=== PATIENT | male | born 1975 | race Caucasian/White ===

== ENCOUNTER → 2021-04-08 16:00 | Outpatient (CLI) | payer BC, SELFPAY ==
[2021-04-08 18:20] LABS: Amphetamine/Metha Screen,Urine Negative ng/ml (<1000); Barbiturates Screen,Urine Negative ng/ml (<200)
[2021-04-08 18:21] LABS: Benzodiazepines Screen,Urine Positive ng/ml (<200); Cannabinoid Screen,Urine Negative ng/ml (<50)
[2021-04-08 18:22] LABS: Cocaine Screen,Urine Negative ng/ml (<300)
[2021-04-08 18:23] LABS: Methadone Screen,Urine Negative ng/ml (<300); Opiate Screen,Urine Negative ng/ml (<300)
[2021-04-08 18:24] LABS: Phencyclidine Screen,Urine Negative ng/ml (<25)
== END ==
PROVIDERS: Visit Provider Nurse Practitioner Family
DX: Z79.899 Other long term (current) drug therapy (principal)
CPT/HCPCS: 80305

== ENCOUNTER → 2021-09-17 14:30 | Outpatient (CLI) | payer BC, SELFPAY ==
[2021-09-17 17:29] LABS: Basophils % 0.5 % (0.1-2.0); Eosinophils # 0.2 K/mm3 (0.0-0.4); Eosinophils % 3.4 % (0.1-12.0); Hematocrit 39.1 % (42.0-52.0); Hemoglobin 11.8 g/dL (14.1-18.0); Lymphocytes # 1.6 K/mm3 (0.7-4.5); Mean Corpuscular Hemoglobin 27.9 pg (27.0-31.2); Mean Platelet Volume 8.8 fl (7.4-10.4); Monocytes # 0.6 K/mm3 (0.1-1.0); Monocytes % 8.8 % (1.7-9.3); Neutrophils % 62.3 % (37.0-80.0); Platelet Count 484 K/mm3 (142-424); Red Blood Count 4.21 M/mm3 (4.60-6.20); Red Cell Distribution Width 14.8 % (11.5-17.5); White Blood Count 6.3 K/mm3 (4.8-10.8)
[2021-09-17 17:47] LABS: Alanine Aminotransferase 26 U/L (12-78); Albumin Level 3.5 g/dl (3.5-5.0); Albumin/Globulin Ratio 1.1 (1.1-1.8); Alkaline Phosphatase 66 U/L (38-126); Anion Gap 10.5 mEq/L (5-15); Aspartate Amino Transferase 45 U/L (17-59); Blood Urea Nitrogen 14 mg/dl (9-20); Calcium 9.2 mg/dl (8.4-10.2); Carbon Dioxide 30 mmol/L (22.0-30.0); Chloride 104 mmol/L (98-107); Estimated Glomerular Filt Rate 105 ml/min (>60); GFR (African American) 126 ML/MIN (>60); Globulin 3.2 g/dL (1.3-3.2); Glucose 113 mg/dl (74-100); Potassium 4.5 mmoL/L (3.5-5.1); Sodium 140 mmol/L (136-145); Total Protein,Serum 6.7 g/dl (6.3-8.2)
[2021-09-17 17:53] LABS: Bilirubin,Total < 0.1 mg/dl (0.2-1.3)
[2021-09-19 07:08] LABS: Hep A Ab, Total Negative (Negative); Hep B Core Ab, Total Negative (Negative); Hep B Surface Ab, Qual Non Reactive (.); Hepatitis B Surface Antigen Negative (Negative); Hepatitis C Antibody >11.0 s/co ratio (0.0-0.9)
[2021-09-19 10:08] LABS: HIV Screen 4th Generation wRfx Non Reactive (Non Reactive)
[2021-09-21 17:09] LABS: HCV Genotype Charge YES; Hepatitis C Genotype 1a (.)
== END ==
PROVIDERS: PCP Nurse Practitioner Family; Visit Provider Nurse Practitioner Family
DX: F41.9 Anxiety disorder, unspecified (principal); J38.7 Other diseases of larynx; B18.2 Chronic viral hepatitis C; Z11.59 Encounter for screening for other viral diseases; Z11.4 Encounter for screening for human immunodeficiency virus [HIV]; Z72.0 Tobacco use
CPT/HCPCS: 80053; 85025; 86703; 86704; 86706; 86708; 87340; 87380; 87522; 87902; G0432

== ENCOUNTER → 2021-12-08 13:35 | Outpatient (CLI) | payer BC, SELFPAY ==
[2021-12-08 18:59] LABS: Barbiturates Screen,Urine Negative ng/ml (<200)
[2021-12-08 19:01] LABS: Benzodiazepines Screen,Urine Negative ng/ml (<200); Cannabinoid Screen,Urine Negative ng/ml (<50)
[2021-12-08 19:03] LABS: Cocaine Screen,Urine Negative ng/ml (<300)
[2021-12-08 19:04] LABS: Methadone Screen,Urine Negative ng/ml (<300); Opiate Screen,Urine Negative ng/ml (<300)
[2021-12-08 19:05] LABS: Phencyclidine Screen,Urine Negative ng/ml (<25)
[2021-12-15 23:40] LABS: Amphetamine Positive (.); Amphetamine (GC/MS) >3000 ng/mL (Cutoff=500); Amphetamines Positive (.); Methamphetamine Positive (.); Methamphetamine (GC/MS) >3000 ng/mL (Cutoff=500)
== END ==
PROVIDERS: PCP Emergency Medicine; Visit Provider Emergency Medicine
DX: Z79.899 Other long term (current) drug therapy (principal)
CPT/HCPCS: 80305; 80324

== ENCOUNTER 2022-04-28 22:39 | Emergency (ER) | payer BC, SELFPAY ==
[2022-04-28 22:40] VITALS: BP 117/81; PULSE 82; RESP 16; TEMP 36.3; O2SAT 92; BMI 20.9
--- NOTE | 2022-04-28 22:51 | CT_ITS ---
PROCEDURE INFORMATION: Exam: CT Chest Without Contrast; Diagnostic Exam date and time: 04/28/2022 11:20 PM Age: 46 years old Clinical indication: Cough TECHNIQUE: Imaging protocol: Diagnostic computed tomography of the chest without contrast. Radiation optimization: All CT scans at this facility use at least one of these dose optimization techniques: automated exposure control; mA and/or kV adjustment per patient size (includes targeted exams where dose is matched to clinical indication); or iterative reconstruction. REPORTING DATA: Count of CT and Cardiac NM exams in prior 12 months: This patient has received [address] and 0 known cardiac nuclear medicine studies in the 12 months prior to the current study. COMPARISON: NECKW CT soft tissue neck w con 07/25/2017 7:17 PM FINDINGS: Lungs: Unremarkable. No consolidation. No masses. Pleural spaces: Unremarkable. No pneumothorax. No pleural effusion. Heart: Unremarkable. No cardiomegaly. No pericardial effusion. Lymph nodes: Calcified mediastinal and perihilar lymph nodes. Shotty bi axillary and mediastinal noncalcified lymph nodes without lymphadenopathy. Vasculature: Unremarkable. No aortic aneurysm. No significant atherosclerotic calcification of thoracic aorta or coronary arteries identified. Bones/joints: Visualized osseous structures grossly unremarkable for acute findings. Soft tissues: Unremarkable. IMPRESSION: 1. No infiltration is seen. 2. Calcified perihilar and mediastinal lymph nodes likely reflecting remote granulomatous exposure.
--- NOTE | 2022-04-28 22:51 | CT_ITS ---
PROCEDURE INFORMATION: Exam: CT Neck With Contrast Exam date and time: 04/28/2022 11:25 PM Age: 46 years old Clinical indication: Dysphagia / difficulty swallowing and other: Cough; Patient HX: PT states HX of throat cancer TECHNIQUE: Imaging protocol: Computed tomography of the neck with contrast. Radiation optimization: All CT scans at this facility use at least one of these dose optimization techniques: automated exposure control; mA and/or kV adjustment per patient size (includes targeted exams where dose is matched to clinical indication); or iterative reconstruction. Contrast material: ISOVUE; Contrast volume: 75 ml; Contrast route: IV; REPORTING DATA: Count of CT and Cardiac NM exams in prior 12 months: This patient has received [address] and 0 known cardiac nuclear medicine studies in the 12 months prior to the current study. COMPARISON: NECKW CT soft tissue neck w con 07/25/2017 7:17 PM FINDINGS: Pharynx: Unremarkable. No significant tonsillar enlargement. Larynx: There is irregularity of the aryepiglottic folds without mass lesion or focal inflammatory lesion. This may be related mild inflammation or sequela of treatment for the patient's cancer. The vocal cords are symmetric. Prevertebral and retropharyngeal spaces: Unremarkable. Salivary glands: Normal. Glands are normal in size. Thyroid: The thyroid gland is diminutive and slightly heterogeneous without focal nodule. Lymph nodes: Unremarkable. No lymphadenopathy. Trachea: Visualized trachea is unremarkable. Lungs: Fibrotic changes of the medial lung apices likely related to radiation therapy for the patient's reported throat cancer. Mediastinal space: Mucous is noted within the mid to distal thoracic trachea included on this study. Bones/joints: Unremarkable. No acute fracture. Vasculature: There is a small plaque along the posterior wall of the proximal left internal carotid artery without significant stenosis. Soft tissues: Unremarkable. No significant soft tissue swelling. IMPRESSION: 1. Irregularity of the aryepiglottic folds may be related to mild inflammation or treatment for the patient's known cancer. There is no airway compromise. No abscess is identified. The prevertebral soft tissues are normal. 2. Fibrotic changes of the medial lung apices likely related to radiation therapy. 3. Mucus within the mid to distal thoracic trachea included on this study. 4. Other findings as detailed.
--- NOTE | 2022-04-28 23:17 | PC.NURSE ---
pt going to scan
[2022-04-28 23:32] LABS: Basophils # 0.1 K/mm3 (0-0.2); Basophils % 0.7 % (0.1-2.0); Chloride 97 mmol/L (98-107); Eosinophils # 0.1 K/mm3 (0.0-0.4); Eosinophils % 0.7 % (0.1-12.0); Hematocrit 42.9 % (42.0-52.0); Lymphocytes # 2.6 K/mm3 (0.7-4.5); Lymphocytes % 32.8 % (10-50); Mean Corpuscular HGB Conc 32.6 g/dL (31.8-35.4); Mean Corpuscular Hemoglobin 28.7 pg (27.0-31.2); Mean Corpuscular Volume 87.9 fl (80-94); Mean Platelet Volume 7.6 fl (7.4-10.4); Monocytes # 0.4 K/mm3 (0.1-1.0); Monocytes % 4.9 % (1.7-9.3); Neutrophils # 4.9 K/mm3 (1.8-7.8); Neutrophils % 60.9 % (37.0-80.0); Platelet Count 419 K/mm3 (142-424); Potassium 4.2 mmoL/L (3.5-5.1); Red Blood Count 4.88 M/mm3 (4.60-6.20); Red Cell Distribution Width 13.5 % (11.5-17.5); Sodium 136 mmol/L (136-145)
[2022-04-28 23:35] LABS: Anion Gap 12.2 mEq/L (5-15); Blood Urea Nitrogen 28 mg/dl (9-20); Calcium 9.4 mg/dl (8.4-10.2); Carbon Dioxide 31 mmol/L (22.0-30.0); Creatinine Clearance Estimated 45 mL/min (50-200); Estimated Glomerular Filt Rate 44 ml/min (>60); GFR (African American) 53 ML/MIN (>60); Glucose 108 mg/dl (74-100)
[2022-04-28 23:48] LABS: Troponin I < 0.01 ng/ml (0.00-0.034)
--- NOTE | 2022-04-28 23:55 | [facility].EDDIZZ ---
Discharge Plan Disposition Patient Disposition: Home, Self-Care Prescriptions Prescriptions: New azithromycin [azithromycin] 250 mg tablet 250 mg PO DIRECTED Qty: 6 0RF Rx Instructions: Take two (2) tablets on day #1, then one (1) tablet day #2 thru #5 prednisone [prednisone] 20 mg tablet 20 mg PO BID Qty: 10 0RF No Action bupropion HCl 75 mg tablet 75 mg PO BID Qty: 180 3RF cyclobenzaprine 10 mg tablet 10 mg PO TID PRN (Reason: muscle spasm) Qty: 60 0RF clonazepam 0.5 mg tablet 0.5 mg PO QID Qty: 120 0RF hydrocodone-acetaminophen 5-325 mg tablet 1 tab PO BID Qty: 60 0RF sildenafil 100 mg tablet 100 mg PO DAILY Qty: 30 2RF Referrals Follow up/Referrals: Giancarlo Riojas MD [Primary Care Provider] - See instructions Clinical Impressions Clinical Impression: Laryngeal spasm, CORTES (acute kidney injury) Instructions Patient Instructions: DI for Laryngitis Discharge ED Provider: Beulah (ED)Giancarlo Dizzarjun HPI General Chief Complaint: Dizziness Stated Complaint: dizzy, sweating, off balance, HX of throat cancer Time Seen by Provider: 04/28/22 23:55 Mode of Arrival: Ambulatory Source of Information: Patient, Significant Other and Medical Record Limitations: No Limitations Description of Symptoms (Recalled from ER Triage Doc. 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 but no f/u over the last 2 yrs - has hx of dysphonia and continues to smoke - episode of choking on water tonight and with cough got dizzyness complaint: dizziness Onset (ago): hour(s) Timing: sudden onset and now resolved Description: lightheadedness History of similar episodes: Yes History of trauma: No Severity: moderate Associated symptoms: denies other symptoms Related Data Previous Rx's Medication Instructions Recorded cyclobenzaprine 10 mg tablet 10 mg PO TID PRN muscle spasm #60 01/13/21 tabs bupropion HCl 75 mg tablet 75 mg PO BID #180 tabs 04/08/21 sildenafil 100 mg tablet 100 mg PO DAILY #30 tabs 07/26/21 clonazepam 0.5 mg tablet 0.5 mg PO QID #120 tabs 12/08/21 hydrocodone 5 mg-acetaminophen 325 1 tab PO BID #60 tabs 12/08/21 mg tablet azithromycin 250 mg tablet 250 mg PO DIRECTED #6 tabs 04/29/22 prednisone 20 mg tablet 20 mg PO BID #10 tabs 04/29/22 Allergies Allergy/AdvReac Type Severity Reaction Status Date / Time No Known Allergies Allergy Verified 12/08/21 13:37 [facility] Disclaimer: The information contained in this section may have been updated after the patient was seen, as this information can be updated by other users. Social History Smoking Status: Current every day smoker tobacco type: e-cigarettes alcohol intake: never substance use type: former substance user and prescription drug current occupational status: disabled Travel in the last 8 weeks: None housing: house ROS Obtained: Yes All systems reviewed & no additional complaints except as documented Physical Exam General General appearance: alert Head Head exam: normocephalic Eye Eye exam: Present PERRL and EOMI ENT ENT exam: Present mucous membranes moist Neck Neck exam: Present trachea midline; Absent lymphadenopathy Respiratory Respiratory exam: Present normal lung sounds bilaterally; Absent respiratory distress Cardiovascular Cardiovascular exam: Present regular rate and systolic murmur Abdominal Exam Abdominal exam: Present soft Extremities Exam Extremities exam: Present full ROM Neurological Exam Neurological exam: Present alert, oriented X3 and CN II-XII intact; Absent motor sensory deficit Psychiatric Psychiatric exam: Present normal affect Skin Skin exam: Absent rash Medical Decision Making Medical Records Medical records reviewed: Yes I reviewed the patient's medi
[2022-04-29 00:48] VITALS: BP 124/81; PULSE 80; RESP 16; TEMP 36.3; O2SAT 92
== END 2022-04-29 00:50 | disposition home or self-care (01) ==
PROVIDERS: Emergency Provider Emergency Medicine; PCP Emergency Medicine
DX: J38.5 Laryngeal spasm (principal); N17.8 Other acute kidney failure
CPT/HCPCS: 70491; 71250; 80048; 84484; 85025; 96361; 96374; 96375; 99284; 99285; Q9967

== ENCOUNTER → 2022-05-04 15:03 | Outpatient (CLI) | payer BC, SELFPAY ==
[2022-05-04 16:26] LABS: Anion Gap 11.4 mEq/L (5-15); Blood Urea Nitrogen 21 mg/dl (9-20); Carbon Dioxide 29 mmol/L (22.0-30.0); Chloride 98 mmol/L (98-107); Estimated Glomerular Filt Rate 104 ml/min (>60); GFR (African American) 126 ML/MIN (>60); Glucose 82 mg/dl (74-100); Potassium 4.4 mmoL/L (3.5-5.1); Sodium 134 mmol/L (136-145)
== END ==
PROVIDERS: PCP Emergency Medicine; Visit Provider Emergency Medicine
DX: N17.9 Acute kidney failure, unspecified (principal)
CPT/HCPCS: 36415; 80048

== ENCOUNTER 2023-08-18 14:08 | Emergency (ER) | payer SELFPAY ==
[2023-08-18] VITALS (8 sets, daily range): BP systolic 88–130; BP diastolic 53–88; PULSE 66–90; RESP 16–18; TEMP 36.6–36.7; O2SAT 93–98; BMI 22.9
--- NOTE | 2023-08-18 15:29 | CT_ITS ---
PROCEDURE INFORMATION: Exam: CTA Abdomen and Pelvis With Contrast Exam date and time: 08/18/2023 5:14 PM Age: 47 years old Clinical indication: Other: Bilateral leg swelling TECHNIQUE: Imaging protocol: Computed tomographic angiography of the abdomen and pelvis with contrast. Exam focused on the arteries. 3D rendering (Not supervised by radiologist): MIP and/or 3D reconstructed images were created by the technologist. Radiation optimization: All CT scans at this facility use at least one of these dose optimization techniques: automated exposure control; mA and/or kV adjustment per patient size (includes targeted exams where dose is matched to clinical indication); or iterative reconstruction. Contrast material: ISOVUE 370; Contrast volume: 100 ml; Contrast route: INTRAVENOUS (IV); COMPARISON: CT ANGIO CHEST 08/18/2023 5:14 PM FINDINGS: Lungs: Minimal focal infiltrate in the tip of the lingula. Small calcified granuloma in the right lower lobe. Lungs are otherwise clear. Diaphragm: Small sliding-type hiatal hernia. Aorta: No aortic aneurysm. No aortic dissection. Celiac trunk and mesenteric arteries: No occlusion or significant stenosis. Renal arteries: No occlusion or significant stenosis. Right iliac arteries: No occlusion or significant stenosis. Left iliac arteries: No occlusion or significant stenosis. Liver: No mass. Gallbladder and biliary ducts: Unremarkable. No calcified stones. No ductal dilation. Pancreas: Unremarkable. No mass. No ductal dilation. Spleen: Unremarkable. No splenomegaly. Adrenal glands: Unremarkable. No mass. Kidneys and ureters: Unremarkable. No solid mass. No hydronephrosis. Stomach and bowel: Unremarkable. No obstruction. No mucosal thickening. Appendix: No evidence of appendicitis. Intraperitoneal space: Unremarkable. No free air. No significant fluid collection. Lymph nodes: Mild diffuse periaortic and mesenteric lymphadenopathy. Mild bilateral inguinal lymphadenopathy. Urinary bladder: Unremarkable. No mass. Reproductive: Unremarkable as visualized. Bones/joints: Mild degenerative changes throughout the thoracic spine. No vertebral body compression or acute fracture. Soft tissues: Small fat containing umbilical hernia. IMPRESSION: 1. No significant atherosclerotic disease, abnormality of the abdominal aorta or significant arterial stenosis or occlusion in the abdomen or pelvis. 2. Mild diffuse periaortic, mesenteric and bilateral inguinal lymphadenopathy. No prior studies are available to determine whether these findings are chronic. Active pathology such as infection or metastatic neoplasm would be in the differential diagnosis. 3. Small fat containing umbilical hernia.
--- NOTE | 2023-08-18 15:29 | CT_ITS ---
PROCEDURE INFORMATION: Exam: CTA Chest With Contrast Exam date and time: 08/18/2023 5:14 PM Age: 47 years old Clinical indication: Other: Rue pulse deficit, pallor TECHNIQUE: Imaging protocol: Computed tomographic angiography of the chest with contrast. Exam focused on the arteries. 3D rendering (Not supervised by radiologist): MIP and/or 3D reconstructed images were created by the technologist. Radiation optimization: All CT scans at this facility use at least one of these dose optimization techniques: automated exposure control; mA and/or kV adjustment per patient size (includes targeted exams where dose is matched to clinical indication); or iterative reconstruction. Contrast material: ISOVUE 370; Contrast volume: 100 ml; Contrast route: INTRAVENOUS (IV); COMPARISON: CT ANGIO CHEST 08/18/2023 5:14 PM FINDINGS: Pulmonary arteries: Evaluation limited due to suboptimal contrast opacification. No evidence of pulmonary emboli. Aorta: Unremarkable. No aortic aneurysm. No aortic dissection. Lungs: Minimal infiltrate in the tip of the lingula. Small calcified granuloma in the right lower lobe. Lungs are otherwise clear. Pleural spaces: Unremarkable. No pneumothorax. No pleural effusion. Heart: Unremarkable. No cardiomegaly. No pericardial effusion. Lymph nodes: Small calcified lymph nodes in the right hilum and subcarinal region. Slightly prominent noncalcified lymph nodes in the right paratracheal region. Diaphragm: Small sliding-type hiatal hernia. Bones/joints: Mild degenerative disc changes throughout the thoracic spine. No vertebral body compression or acute fracture. Soft tissues: Unremarkable. IMPRESSION: 1. Minimal age-indeterminate infiltrate in the tip of the lingula 2. Slightly limited evaluation of the pulmonary arteries. No evidence of pulmonary embolus or aortic abnormality 3. Nonspecific mildly prominent right paratracheal lymph nodes as well as small calcified lymph nodes in the right hilum and mediastinum. This may represent sequela of old granulomatous disease.
--- NOTE | 2023-08-18 15:29 | CT_ITS ---
PROCEDURE INFORMATION: Exam: CTA Right Upper Extremity With Contrast Exam date and time: 08/18/2023 5:23 PM Age: 47 years old Clinical indication: Other: Pulse deficit TECHNIQUE: Imaging protocol: Computed tomographic angiography of the right upper extremity with contrast, including non-contrast images if performed. 3D rendering (Not supervised by radiologist): MIP and/or 3D reconstructed images were created by the technologist. Radiation optimization: All CT scans at this facility use at least one of these dose optimization techniques: automated exposure control; mA and/or kV adjustment per patient size (includes targeted exams where dose is matched to clinical indication); or iterative reconstruction. Contrast material: ISOVUE 370; Contrast volume: 80 ml; Contrast route: INTRAVENOUS (IV); COMPARISON: CT ANGIO CHEST 08/18/2023 5:14 PM FINDINGS: Right subclavian artery: On series 6, images 28-33 there is focal thrombus producing complete occlusion of the origin of the right subclavian artery lumen. There is distal contrast opacification of the subclavian artery presumably via collateral vessels. Axillary artery: No acute findings. No occlusion or significant stenosis. Brachial artery: No acute findings. No occlusion or significant stenosis. Radial artery: No acute findings. No occlusion or significant stenosis. Ulnar artery: No acute findings. No occlusion or significant stenosis. Other arteries: The distal interosseous artery is not well opacified, possibly due to small caliber. Stenosis or occlusion not excluded. Soft tissues: Unremarkable. IMPRESSION: 1. 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 Inadequate opacification of the distal interosseous artery of the wrist. Distal radial and ulnar arteries as well as other arteries of the right upper extremity appear well opacified. THIS REPORT CONTAINS FINDINGS THAT MAY BE CRITICAL TO PATIENT CARE. The findings were verbally communicated via telephone conference with Jose Luis Baugh at 6:24 PM EDT on 08/18/2023. The findings were acknowledged and understood.
--- NOTE | 2023-08-18 15:29 | XR_ITS ---
PROCEDURE INFORMATION: Exam: XR Chest Exam date and time: 08/18/2023 5:29 PM Age: 47 years old Clinical indication: Other: Pulse deficit TECHNIQUE: Imaging protocol: Radiologic exam of the chest. Views: 1 view. COMPARISON: CT ANGIO CHEST 08/18/2023 5:14 PM FINDINGS: Lungs: Minimal focal opacity in the left lower lung compatible with small focus of infiltrate in the tip of the lingula on CT performed earlier the same day. Small calcified granuloma noted in the right mid lung. Lungs are otherwise clear. Pleural spaces: Unremarkable. No pleural effusion. No pneumothorax. Heart/Mediastinum: Unremarkable. No cardiomegaly. Bones/joints: Unremarkable. IMPRESSION: Minimal lingular infiltrate
[2023-08-18] MEDS: KETOROLAC 30MG/ML VIAL 15 MG IV (15:38)
[2023-08-18] MEDS: ACETAMINOPHEN 1,000MG/100ML VIAL 1000 MG IV (15:38)
[2023-08-18 15:42] LABS: Basophils % 0.2 % (0.1-2.0); Eosinophils # 0.2 K/mm3 (0.0-0.4); Eosinophils % 1.6 % (0.1-12.0); Hematocrit 35.1 % (42.0-52.0); Hemoglobin 11.9 g/dL (14.1-18.0); Lymphocytes # 1.1 K/mm3 (0.7-4.5); Lymphocytes % 9.1 % (10-50); Mean Corpuscular HGB Conc 33.8 g/dL (31.8-35.4); Mean Corpuscular Hemoglobin 30.5 pg (27.0-31.2); Mean Corpuscular Volume 90.3 fl (80-94); Mean Platelet Volume 8.9 fl (7.4-10.4); Monocytes # 0.7 K/mm3 (0.1-1.0); Monocytes % 6.2 % (1.7-9.3); Neutrophils # 9.6 K/mm3 (1.8-7.8); Neutrophils % 82.8 % (37.0-80.0); Platelet Count 244 K/mm3 (142-424); Red Blood Count 3.89 M/mm3 (4.60-6.20); Red Cell Distribution Width 13.8 % (11.5-17.5); White Blood Count 11.6 K/mm3 (4.8-10.8)
--- NOTE | 2023-08-18 15:50 | HMH.EDGENADL ---
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 by RN): Patient reports possible nidia lower extremity DVTs. States he has had them in the past and his legs look like they do the last time he had them. Also complains of his fingers turning purple on his right hand. History of Present Illness HPI narrative: Please note that above description of symptoms, in this electronic medical record under categorization of recalled from ER triage doctor by RN are reflective of an initial nursing assessment, however, is not reflective of my full history and physical exam that was personally taken and clarified. Consequentially, this preceding description of symptoms, which may include the patient's categorized chief complaint in the EMR, do not reflect my personal clinical impression, and the ultimate description of history of present illness and patient stated complaints should be deferred to this section of the note. Unless stated otherwise or congruent with this section of the note, additional signs, symptoms, or incongruence should be interpreted as inaccurate with my clinical impression. Related Data Previous Rx's Medication Instructions Recorded cyclobenzaprine 10 mg tablet 10 mg PO TID PRN muscle spasm #60 01/13/21 tabs bupropion HCl 75 mg tablet 75 mg PO BID #180 tabs 04/08/21 clonazepam 0.5 mg tablet 0.5 mg PO QID #120 tabs 05/04/22 sildenafil 100 mg tablet 100 mg PO DAILY #30 tabs 05/13/22 Allergies Allergy/AdvReac Type Severity Reaction Status Date / Time No Known Allergies Allergy Verified 05/04/22 14:00 [facility] Disclaimer: The information contained in this section may have been updated after the patient was seen, as this information can be updated by other users. Social History Smoking Status: Former smoker tobacco type: e-cigarettes alcohol intake: never substance use type: former substance user and prescription drug current occupational status: disabled Travel in the last 8 weeks: None housing: house ROS Obtained: Yes All systems reviewed & no additional complaints except as documented Physical Exam General General appearance: alert and in no apparent distress Head Head exam: atraumatic and normocephalic Eye Eye exam: Present normal appearance, PERRL and EOMI ENT ENT exam: Present mucous membranes moist Neck Neck exam: Present normal inspection, full ROM and trachea midline Respiratory Respiratory exam: Present normal lung sounds bilaterally; Absent respiratory distress, wheezes, stridor, accessory muscle use or prolonged expiratory phase Cardiovascular Cardiovascular exam: Present regular rate, normal rhythm and normal heart sounds; Absent systolic murmur or diastolic murmur Abdominal Exam Abdominal exam: Present soft; Absent distention, tenderness, guarding, rebound or rigidity Extremities Exam Extremities exam: Present other (Erythema of left hand, bilateral feet. Mild erythema climbing up the medial malleolus left foot and dorsal aspect of right foot. Pulses equal and symmetric in left upper, left lower and right lower extremity. Right upper extremity pulse deficit with cyanotic fingers.); Absent edema Neurological Exam Neurological exam: Present alert, oriented X3, CN II-XII intact and normal gait; Absent motor sensory deficit Skin Skin exam: Present warm and dry; Absent diaphoresis or erythema Medical Decision Making Medical Records Medical records reviewed: Yes I reviewed the patient's medical records. Martín Inquiry Pt receiving controlled substance: No Martín was queried for this patient: No Vital Signs: 08/18/23 14:09 08/18/23 14:17 08/18/23 14:31 Temperature 97.9 F Temperature Source Oral Pulse Rate 90 Pulse Rate [Radial] 88 Respiratory Rate 18 Blood Pressure 130/81 109/53 L Blood Pressure [Right Arm] 130/81 Blood Pressure Mean 71 Blood Pressure Mean [Right Arm] 97 Blood Pressure Source [Right Arm] Automatic Cuff Blood Pressure Position [Right Arm] Sitting 02 Sat by Pulse Oximetry 93 L Oxygen Delivery Method Room Air 08/18/23 16:53 08/18/23 17:51 08/18/23 18:30 Temperature Temperature Source Pulse Rate 66 81 73 Pulse Rate [Radial] Respiratory Rate 18 Blood Pressure 91/64 L 93/71 L 102/88 L Blood Pressure [Right Arm] Blood Pressure Mean 74 Blood Pressure Mean [Right Arm] Blood Pressure Source [Right Arm] Blood Pressure Position [Right Arm] 02 Sat by Pulse Oximetry 98 98 98 Oxygen Delivery Method Room Air Room Air Lab Data Lab Results 08/18/23 14:10: WBC 11.6 H, RBC 3.89 L, Hgb 11.9 L, Hct 35.1 L, MCV 90.3, MCH 30.5, MCHC 33.8, RDW 13.8, Plt Count 244, MPV 8.9, Neut % (Auto) 82.8 H, Lymph % (Auto) 9.1 L, [place]idan % (Auto) 6.2, Eos % (Auto) 1.6, Baso % (Auto) 0.2, Neut # (Auto) 9.6 H, Lymph # (Auto) 1.1, Sheridan # (Auto) 0.7, Eos # (Auto) 0.2, Baso # (Auto) 0.0, ESR 52 H, Sodium 135 L, Potassium 3.7, Chloride 103, Carbon Dioxide 28, Anion Gap 7.7, BUN 13, Creatinine 0.70, Estimated Creat Clear 134, Estimated GFR 121, Est GFR ( Amer) 146, Glucose 143 H, Calcium 8.8, Total Bilirubin 0.9, AST 128 H, ALT 46, Alkaline Phosphatase 39, Total Creatine Kinase 3193 H*, Troponin I < 0.01, C-Reactive Protein 180.5 H, NT-Pro-B Natriuret Pep 358 H, Total Protein 7.0, Albumin 3.8, Globulin 3.2, Albumin/Globulin Ratio 1.2 08/18/23 14:40: APTT 25.9 L 08/18/23 15:40: Lactate 0.8 08/18/23 17:42: Urine Opiates Screen Negative, Urine Methadone Screen Negative, Ur Barbituates Screen Negative, Ur Phencyclidine Scrn Negative, Ur Amphetamines Screen Negative, U Benzodiazepines Scrn Negative, Urine Cocaine Screen Negative, U Marijuana (THC) Screen Negative 08/18/23 14:10 08/18/23 14:10 Orders (Tests/Meds): ED MEDICATIONS Generic Name Dose Route Start Last Admin Trade Name Freq PRN Reason Stop Dose Admin Heparin Sodium (Porcine) 7,300 unit 08/18/23 18:21 Heparin Sodium 5,000 Unit/Ml Vial 100 unit/kg (7300 unit) 08/18/23 18:22 IV ONCE ONE Miscellaneous 1 each 08/18/23 18:30 Heparin Drip Consult NOTAPPLIC 09/17/23 18:29 CONSULT PHARMACY TERE Discontinued Medications Generic Name Dose Route Start Last Admin Trade Name Freq PRN Reason Stop Dose Admin Acetaminophen 1,000 mg 08/18/23 15:29 08/18/23 15:38 Acetaminophen 1,000mg/100ml Vial IV 08/18/23 15:30 1,000 mg ONCE ONE Administration Lactated Ringer's 1,000 mls @ 999 mls/hr 08/18/23 16:34 08/18/23 16:51 Lactated Ringer's 1000 Ml Bag IV 08/18/23 17:34 999 mls/hr .Q1H1M ONE Administration Lactated Ringer's 1,000 mls @ 999 mls/hr 08/18/23 16:33 08/18/23 16:51 Lactated Ringer's 1000 Ml Bag IV 08/18/23 17:33 999 mls/hr .Q1H1M ONE Administration Iopamidol 180 ml 08/18/23 17:44 Iopamidol-370 (76%);100ml Bottle IV 08/18/23 17:45 ONCE ONE Ketorolac Tromethamine 15 mg 08/18/23 15:29 08/18/23 15:38 Ketorolac 30mg/Ml Vial IV 08/18/23 15:30 15 mg ONCE ONE Administration Sodium Chloride 10 ml 08/18/23 17:44 Sodium Chloride 0.9% 10ml Syr (Rad Only) IV 08/18/23 17:45 ONCE ONE Sodium Chloride 100 ml 08/18/23 17:44 0.9 % Sodium Chloride 50 Ml Vial IV 08/18/23 17:45 ONCE ONE ORDERS Category Date Time Status CT angio UE RT Stat Cat Scan 08/18/23 15:[address] angio abdomen pelvis Stat Cat Scan 08/18/23 15:[address] angio chest - dissection Stat Cat Scan 08/18/23 15:29 Completed CXR --portable [XR chest portable] Stat Exams 08/18/23 15:29 Completed POCUS Point of Care (ER Only) Stat Exams 08/18/23 15:35 Completed CBC w/Auto Diff [Complete Blood Count Auto Diff] Stat Lab 08/18/23 14:10 Completed CK [Creatine Kinase] Stat Lab 08/18/23 14:10 Completed CMP [Comprehensive Metabolic Panel] Stat Lab 08/18/23 14:10 Completed CRP [C-Reactive Protein] Stat Lab 08/18/23 14:10 Completed ESR [Erythrocyte Sedimentation Rate] Stat Lab 08/18/23 14:10 Completed Lactic Acid Stat Lab 08/18/23 15:40 Completed NT Pro Brain Natriuretic Pep. 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 Patient states that a couple hours prior to arrival, his right upper extremity started turning blue and cold in the fingers. He can still feel it, movement, and is not painful. Associated with redness and swelling in his left hand and left upper extremity, bilateral lower extremities primarily in the feet. 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 No shortness of breath, chest pain, neurologic deficits otherwise. History was obtained via conversation with patient. On arrival, patient hemodynamically stable, alert, oriented x4, appropriate, GCS 15, moving all extremities spontaneously, pupils equal and reactive to light. Full physical exam performed and significant for patient has erythema of his left hand and bilateral feet ascending up toward ankles. Pulses are intact and symmetric left upper extremity and bilateral lower extremities. He does have a pulse deficit in his right upper extremity. Difficult to palpate, thready. Neurologically intact with range of motion intact and nontender. Differential includes aortic dissection, arterial thrombus, metabolic, endocrinologic, infectious, inflammatory, vascular compressive syndrome, among others. Patient was given Toradol and acetaminophen for symptomatic management and correction of underlying abnormalities. Workup independently interpreted and significant for leukocytosis 12,000 with neutrophilia. Patient's chemistry nonactionable. Kidney function normal. CK elevated at 3200, troponin negative, CRP elevated at 180, ESR elevated at 52. Chest x-ray without acute cardiopulmonary airspace disease, but CT angiogram of the chest, abdomen and pelvis with runoff to the right upper extremity concerning for acute right subclavian artery thrombus with minimal distal reconstitution and complete opacification of the interosseous artery on the right with no distal reconstitution. See radiology read for full review of final results. Patient was started on heparin bolus and drip. On reevaluation, patient still not in any pain. This was relayed to patient, he is agreeable to transfer. [facility] was contacted and case was discussed at length with transfer center as well as vascular surgery, patient accepted to [place] emergency department under Doctors Jordy and Devonte. Because patient high risk for clinical decompensation if discharged, deemed appropriate for transfer and inpatient admission. Results were relayed to patient who voiced understanding and patient was agreeable to transfer, inpatient admission, and management. [employer] disclaimer Much of this encounter note is an electronic education consultant spoken language to printed text. Electronic education consultant of the spoken language may permit errors. Although I have reviewed the note, some errors may still exist. Critical Care Critical Care Time Critical Care Time: Yes (vascular) Attestation: On 08/18/23, the high probability of a clinically significant, sudden or life threatening deterioration of the following system(s) required my full and direct attention, intervention and personal management. The time I documented below is in addition to time spent performing reported procedures but includes the following listed in this critical care notation. Total Time Total Critical Care Time: 60
[2023-08-18 16:05] LABS: Chloride 103 mmol/L (98-107); Potassium 3.7 mmoL/L (3.5-5.1); Sodium 135 mmol/L (136-145)
[2023-08-18 16:07] LABS: Blood Urea Nitrogen 13 mg/dl (9-20); Creatinine Clearance Estimated 134 mL/min (50-200); Estimated Glomerular Filt Rate 121 ml/min (>60); GFR (African American) 146 ML/MIN (>60)
[2023-08-18 16:08] LABS: Alanine Aminotransferase 46 U/L (12-78); Albumin Level 3.8 g/dl (3.5-5.0); Albumin/Globulin Ratio 1.2 (1.1-1.8); Alkaline Phosphatase 39 U/L (38-126); Anion Gap 7.7 mEq/L (5-15); Aspartate Amino Transferase 128 U/L (17-59); Bilirubin,Total 0.9 mg/dl (0.2-1.3); Calcium 8.8 mg/dl (8.4-10.2); Carbon Dioxide 28 mmol/L (22.0-30.0); Globulin 3.2 g/dL (1.3-3.2); Glucose 143 mg/dl (74-100)
[2023-08-18 16:09] LABS: Lactic Acid 0.8 mmol/L (0.7-2.1)
[2023-08-18 16:13] LABS: C-Reactive Protein 180.5 mg/L (0-4)
[2023-08-18 16:17] LABS: Creatine Kinase 3193 U/L (55-170)
[2023-08-18 16:20] LABS: NT Pro Brain Natriuretic Pep. 358 pg/mL (0-125)
[2023-08-18 16:22] LABS: Troponin I < 0.01 ng/ml (0.00-0.034)
[2023-08-18 16:32] LABS: Erythrocyte Sedimentation Rate 52 mm/hr (0-15)
[2023-08-18] MEDS: LACTATED RINGERS 1000ML 1,000 ML 999 ML IV ×2 (16:51)
--- NOTE | 2023-08-18 16:58 | PC.NURSE ---
provided pt with urinal and notified him of need for urine sample
--- NOTE | 2023-08-18 17:08 | PC.NURSE ---
pt transported to radiology.
[2023-08-18 18:13] LABS: Barbiturates Screen,Urine Negative ng/ml (<200); Benzodiazepines Screen,Urine Negative ng/ml (<200)
[2023-08-18 18:14] LABS: Amphetamine/Metha Screen,Urine Negative ng/ml (<1000); Cannabinoid Screen,Urine Negative ng/ml (<50)
[2023-08-18 18:15] LABS: Cocaine Screen,Urine Negative ng/ml (<300)
[2023-08-18 18:16] LABS: Methadone Screen,Urine Negative ng/ml (<300); Opiate Screen,Urine Negative ng/ml (<300)
[2023-08-18 18:17] LABS: Phencyclidine Screen,Urine Negative ng/ml (<25)
--- NOTE | 2023-08-18 18:21 | PC.NURSE ---
Dr. Baugh speaking to [facility].
--- NOTE | 2023-08-18 18:27 | PC.NURSE ---
spoke to [facility] transfer center. they advised they are finishing up a couple of other cases and would give us a call back. Nate notified to make a disc and powershare everything to [facility]
--- NOTE | 2023-08-18 18:30 | PC.NURSE ---
Dr. Baugh at bedside
--- NOTE | 2023-08-18 18:34 | PC.NURSE ---
Dr. Baugh on the phone with [facility]
[2023-08-18 18:40] LABS: PTT Heparin (inpatient only) 25.9 Seconds (50-75)
--- NOTE | 2023-08-18 18:47 | PC.NURSE ---
Pt accepted to [facility]
[2023-08-18] MEDS: HEPARIN DRIP CONSULT 1 EACH NOTAPPLIC (18:59)
--- NOTE | 2023-08-18 19:03 | PC.NURSE ---
called report to marquita juarez at er
[2023-08-18] MEDS: HEPARIN SODIUM,PORCINE/D5W 500 ML 26 UNIT IV (19:08)
[2023-08-18] MEDS: HEPARIN SODIUM 5,000 UNIT/ML VIAL 6000 UNIT IV (19:08)
--- NOTE | 2023-08-18 19:25 | PC.NURSE ---
Pt's BP has been consistently low the last 30 minutes. This RN did a manual pressure which was 80/54. informed. Pt is A&O and has no complaints at this time.
== END 2023-08-18 19:42 | disposition home or self-care (01) ==
PROVIDERS: Emergency Provider Emergency Medicine; PCP Family Medicine
DX: M62.22 Nontraumatic ischemic infarction of muscle, upper arm (principal); I82.B11 Acute embolism and thrombosis of right subclavian vein; I10 Essential (primary) hypertension; Z86.718 Personal history of other venous thrombosis and embolism
CPT/HCPCS: 71045; 71275; 73206; 74174; 80053; 80307; 82550; 83605; 83880; 84484; 85025; 85651; 85730; 86140; 87040; 96361; 96365; 96375; 99291; J0131; J1644; J1885; J7120